=== PATIENT | female | born 1960 | race Caucasian/White ===

== ENCOUNTER 2023-03-01 07:32 | Day surgery (SDC) | payer MEDICAID ==
[~2023-03-01] VITALS: Ht 149.9 cm; Wt 73.5 kg
[2023-03-01] MEDS ORDERED: MEPERIDINE 100 MG INJ. 100 MG/ML VIAL ONE (07:43)
[2023-03-01] MEDS ORDERED: MIDAZOLAM HCL 5 MG/5 ML VIAL ONE ×2 (07:43→08:25)
[2023-03-01 10:55] VITALS: O2SAT 97
[2023-03-01 14:49] VITALS: BP_SYST 105; PULSE 51; RESP 16
[2023-03-02] MEDS ORDERED: MEPERIDINE 100 MG INJ. 100 MG/ML VIAL ONE (07:53)
[2023-03-02] MEDS ORDERED: MIDAZOLAM HCL 5 MG/5 ML VIAL ONE (07:53)
== END 2023-03-02 10:03 | disposition home or self-care (01) ==
LOC: SDS 07:32 → SMU 10:00 → SDS 03-02 07:32 → SMU 03-02 07:33 → SDS 03-02 10:03 → SMU 03-02 10:03
PROVIDERS: ATTEND Student in an Organized Health Care Education/Training Program
DX: D50.9 Iron deficiency anemia, unspecified (principal); K59.09 Other constipation; K29.50 Unspecified chronic gastritis without bleeding; K64.8 Other hemorrhoids
CPT/HCPCS: 43239; 99152 ×2; 88305; 88312; 88313; 99153; 45378; G0378; J2250 ×2; J2175 ×2